=== PATIENT | male | born 1980 | race African-American/Black ===

== ENCOUNTER → 2022-02-17 14:14 | Outpatient (CLI) | payer BC, SELFPAY ==
--- NOTE | ~2022-02-17 | XR_ITS ---
XR chest 2V DATE: 02/17/2022 14:35 INDICATION: Past tobacco use TECHNIQUE: 2 views COMPARISON: None FINDINGS: Normal heart size. No hilar or mediastinal enlargement. No pulmonary infiltrate or consolid ation, pleural effusion or pulmonary vascular congestion or pneumothorax. Degenerative spurring of the thoracic spine. IMPRESSION: No active cardiopulmonary disease Reviewed, dictated and finalized at location A.
== END ==
PROVIDERS: PCP Emergency Medicine; Visit Provider Emergency Medicine
DX: Z87.891 Personal history of nicotine dependence (principal)
CPT/HCPCS: 71046